=== PATIENT | female | born 1980 | race Caucasian/White ===

== ENCOUNTER 2019-10-20 08:26 | Emergency (ER) | payer BC ==
[2019-10-20] MEDS ORDERED: Bupivacaine 0.5% 10 ML SDV INJECT ONE (08:56)
[2019-10-20] MEDS ORDERED: Lidocaine 1% 10 ML MDV INJECT ONE (08:56)
[2019-10-20] MEDS ORDERED: Lidocaine/EPINEPHrine/Tetracaine Soln 1 ML TOP ONE (08:56)
[2019-10-20] MEDS ORDERED: Diphtheria,Pertussis(Acell),Tetanus Vaccine 0.5 ML Syringe IM ONE (09:00)
--- NOTE | 2019-10-20 09:01 | EDM.PDOC ---
ED HPI GENERAL MEDICAL PROBLEM - General Chief Complaint: Laceration Stated Complaint: R HAND LAC Time Seen by Provider: 10/20/19 08:36 Source of Information: Reports: Patient, Family (Son) History Limitations: Reports: No Limitations - History of Present Illness INITIAL COMMENTS - FREE TEXT/NARRATIVE: Mrs. Zambrano is a very pleasant 39-year-old woman with no significant chronic medical issues, states that she accidentally cut the medial aspect of her right hand when she broke a glass that she was washing last night around 21:30. She is otherwise uninjured. The patient states that her last tetanus vaccination was around 2007. She agreed to receive a tetanus vaccination here. The patient does not have a PCP, but occasionally goes to the [place] clinic. She has not received any influenza vaccine this season, but agreed to receive one here. Right Hand Pain Score (Numeric/FACES): 4 - Related Data Allergies Allergy/AdvReac Type Severity Reaction Status Date / Time No Known Allergies Allergy Verified 10/20/19 08:39 Home Meds: Home Meds Montelukast [Singulair] 10 mg PO DAILY 10/20/19 [History] buPROPion [Wellbutrin] 75 mg PO DAILY 10/20/19 [History] Past Medical History HEENT History: Reports: Allergic Rhinitis Psychiatric History: Reports: Anxiety - Past Surgical History HEENT Surgical History: Reports: Adenoidectomy, Tonsillectomy Social & Family History - Tobacco Use Smoking Status *Q: Never Smoker - Alcohol Use Alcohol Use History: Yes Alcohol Use Frequency: Socially - Recreational Drug Use Recreational Drug Use: No - Living Situation & Occupation Living situation: Reports: , with Spouse, with Family (2 kids) Occupation: Employed ([employer]) ED ROS GENERAL - Review of Systems Review Of Systems: Comprehensive ROS is negative, except as noted in HPI. ED EXAM, SKIN/RASH Exam: See Below Exam Limited By: No Limitations General Appearance: Alert, WD/WN, No Apparent Distress Extremities: Other (There is an approximately 2.0 cm curvilinear laceration over the medial aspect of the right fifth MCP joint. Minimal bleeding. No foreign bodies identified. No tendinous injury. Neurovascular status of the right hand is intact.) ED SKIN PROCEDURES - Laceration/Wound Repair Right Hand Appearance: Subcutaneous, Irregular (curvilinear), Clean Distal NVT: Neuro & Vascular Intact, No Tendon Injury Anesthetic Type: Local Local Anesthesia - Lidocaine (Xylocaine): 1% Plain (50:50 admixture) Local Anesthesia - Bupivicaine (Marcaine): 0.5% Plain (50:50 admixture) Local Anesthetic Volume: 1cc Skin Prep: Providone-Iodine (Betadine) Exploration/Debridement/Repair: Wound Explored, In a Bloodless Field, Explored to Base, No Foreign Material Found Closed with: Sutures Lac/Wound length In cm: 2.0 Suture Size: 3-0 # of Sutures: 4 Suture Type: Nylon (Ethilon) Sterile Dressing Applied: Nurse Tetanus Status Addressed: Yes Complications: No Course - Vital Signs Last Recorded V/S: Last Vital Signs Temp 36.7 C 10/20/19 08:40 Pulse 82 10/20/19 08:40 Resp 16 10/20/19 08:40 BP 125/89 10/20/19 08:40 Pulse Ox 100 10/20/19 08:40 - Orders/Labs/Meds Orders: Active Orders 24 hr Category Date Time Status Influenza Vaccine Charge [RC] .DISCHARGE Care 10/20/19 08:56 Active Vaccines to be Administered [RC] PER UNIT ROUTINE Care 10/20/19 09:00 Active Meds: Medications Discontinued Medications Generic Name Dose Route Start Last Admin Trade Name Oniel PRN Reason Stop Dose Admin Bupivacaine HCl 10 ml 10/20/19 08:56 10/20/19 11:01 Sensorcaine-Mpf 0.5% INJECT 10/20/19 08:57 10 ml ONETIME ONE Administration Diphtheria/Tetanus/Acell Pertussis 0.5 ml 10/20/19 09:00 10/20/19 11:22 Adacel IM 10/20/19 09:01 0.5 ml .ONCE ONE Administration Influenza Virus Vaccine 60 mcg 10/20/19 09:15 10/20/19 11:20 Fluzone Quad [id number] Syringe IM 10/20/19 09:16 60 mcg .ONCE ONE Administration Lidocaine HCl 10 ml 10/20/19 08:56 10/20/19 11:01 Xylocaine 1% INJECT 10/20/19 08:57 10 ml ONETIME ONE Administration Lidocaine/Tetracaine 1 ml 10/20/19 08:56 10/20/19 09:05 Let Soln TOP 10/20/19 08:57 1 ml ONETIME ONE Administration - Re-Assessments/Exams Free Text/Narrative Re-Assessment/Exam: 10/20/19 08:55 At present, the patient's wound is about 11.5 hours old, raising some concern about late closure, however, the wound appears to be clean, therefore I feel a loose approximation should be safe. 10/20/19 11:25 The laceration to the patient's right hand was sutured with 4 simple interrupted sutures using 3-0 Ethilon. The patient's pain tolerance was lower than anticipated, but she tolerated the procedure well. The sutures should be ready for removal by or 10/27/2019 or 10/28/2019. The patient received both a tetanus vaccination and an influenza vaccination during her ED visit. Departure - Departure Time of Disposition: 11:26 Disposition: Home, Self-Care 01 Condition: Good Clinical Impression: Laceration of right hand - Discharge Information *PRESCRIPTION DRUG MONITORING PROGRAM REVIEWED*: Not Applicable *COPY OF PRESCRIPTION DRUG MONITORING REPORT IN PATIENT EARLENE: Not Applicable Instructions: Laceration Care, Adult, [id number] Referrals: PCP,None [Primary Care Provider] - Forms: ED Department Discharge Additional Instructions: You were seen in the emergency room after cutting your right hand on a broken glass last night. Your wound was closed with 4 sutures in the ER. Keep the wound clean with ordinary soap and water when you bathe. Pat dry, apply a thin smear of bacitracin ointment, then cover with a Band-Aid, daily. If the Band-Aid should get wet or dirty, we clean the wound, reapply bacitracin ointment, and then recover with a fresh Band-Aid. The sutures should be ready for removal by , 10/27/2019 or Thursday, 2018. They can be removed at the [facility] or a walk-in clinic. If any other problems, please do not hesitate to return to the ER. - My Orders Last 24 Hours: My Active Orders 10/20/19 08:56 Influenza Vaccine Charge [RC] .DISCHARGE 10/20/19 09:00 Vaccines to be Administered [RC] PER UNIT ROUTINE - Assessment/Plan Last 24 Hours: My Active Orders 10/20/19 08:56 Influenza Vaccine Charge [RC] .DISCHARGE 10/20/19 09:00 Vaccines to be Administered [RC] PER UNIT ROUTINE
[2019-10-20] MEDS ORDERED: FLU Vacc QS2019-20(6MOS+)/PF 60 MCG/0.5 ML SYRINGE IM ONE (09:15)
== END 2019-10-20 11:45 | disposition home or self-care (01) ==
LOC: JD.ED 08:26
DX: S61.411A Laceration without foreign body of right hand, initial encounter (principal); Z23 Encounter for immunization; W25.XXXA Contact with sharp glass, initial encounter; Y93.G1 Activity, food preparation and clean up
CPT/HCPCS: 12001; 90471; 90686; 90715; 99282; J2001; J3490; G0008

== ENCOUNTER 2020-12-28 10:13 | Emergency (ER) | payer BC ==
[2020-12-28] MEDS ORDERED: LORazepam 2 MG/ML SDV IVPUSH ONE (10:50)
[2020-12-28] MEDS ORDERED: Ziprasidone HCl 20 MG Cap PO STA (10:50)
[2020-12-28] MEDS ORDERED: Sodium Chloride 0.9% 1,000 ML IV ONE (10:52)
[2020-12-28] MEDS ORDERED: Sodium Chloride 0.9% 10 ML Syringe FLUSH PRN (10:52)
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
[2020-12-28] MEDS ORDERED: Ziprasidone HCl 20 MG Cap PO ONE (11:17)
[2020-12-28 11:36] LABS: ACETAMINOPHEN 0 ug/mL (10-30)
[2020-12-28] MEDS ORDERED: Potassium Chloride 20 MEQ Tab.ER PO ONE (11:49)
[2020-12-28] MEDS ORDERED: OLANZapine 5 MG Tab PO ONE (14:59)
== END 2020-12-28 15:40 ==
LOC: JD.ED 10:13
DX: R44.3 Hallucinations, unspecified (principal); Z20.822 Contact with and (suspected) exposure to COVID-19
CPT/HCPCS: 36415; 80053; 80143; 80179; 80306; 80307; 81001; 83735; 84443; 85025; 87635; 93005; 96374; 99285; A9270; J2060; J7030; 93010; U0002